=== PATIENT | female | born 1960 | race Caucasian/White ===

== ENCOUNTER 2019-10-28 09:32 | Outpatient (REF) | payer OTHER, SELFPAY ==
--- NOTE | 2019-10-28 08:30 | PAPFT_PTH ---
PATIENT: Sandra Shrestha LOC: [facility] U#:[id number] AGE/SX: 59/F ROOM: RE10/28/[address]: Hayley Gee : 1960 BED: DIS: 10/28/2019 SPEC #: [id number] RECD: 10/29/19 13:16 STATUS: GROVER REQ #: [id number] HARLAN: 10/28/19 08:[address]: Hayley Gee DEPT: [facility] Cytology RECD BY: Kayleigh Hensley ENTERED: 10/29/19 13:16 SP TYPE: PAPFT OTHR DR: Cris Fair V Tissues: 1 - CX/ENDOCX FOR PAP SMEARS Procedures: PAP THIN PREP/UVM Screening HPV DNA PROBE Comments: [id number]
== END 2019-10-28 09:52 ==
LOC: NCHCN 09:32
PROVIDERS: PCP Family Medicine; Visit Provider Nurse Practitioner Family
DX: Z12.4 Encounter for screening for malignant neoplasm of cervix (principal); Z01.419 Encounter for gynecological examination (general) (routine) without abnormal findings
CPT/HCPCS: 88142; 87624

== ENCOUNTER 2019-12-29 02:33 | Outpatient (CLI) | payer OTHER, SELFPAY ==
--- NOTE | 2019-12-29 11:18 | DI.MAMMO_ITS ---
EXAM: MAMMO SCREENING CLINICAL HISTORY: SCREENING, Z12.39 TECHNIQUE: Mammograms were interpreted according to the usual protocol including computer analysis w [employer] CAD system, tomosynthesis and C-view imaging. COMPARISON: 2016 and 2017 FINDINGS: The breasts are composed of mainly fatty density , Breast Density category A. No suspicious masses or suspicious microcalcifications are seen. No skin thickening or abnormal axillary lymph nodes are seen. There has been no significant change from prior exams. IMPRESSION: BI-RADS Cat 1 - Negative. Yearly screening mammography is recommended. Breast Density - Category A - Almost entirely fatty
== END 2019-12-29 02:53 ==
PROVIDERS: PCP Family Medicine; Visit Provider Nurse Practitioner Family
DX: Z12.31 Encounter for screening mammogram for malignant neoplasm of breast (principal)
CPT/HCPCS: 77063; 77067

== ENCOUNTER 2020-01-01 03:01 | Outpatient (CLI) | payer OTHER, SELFPAY ==
[2020-01-01 11:04] LABS: Calculated LDL 168 mg/dL (<100); Cholesterol 248 mg/dL (<200); Glucose 104 mg/dL (74-106); HDL Cholesterol 70 mg/dL (40-60); Triglyceride 52 mg/dL (<150)
== END 2020-01-01 03:21 ==
PROVIDERS: PCP Family Medicine; Visit Provider Nurse Practitioner Family
DX: Z00.00 Encounter for general adult medical examination without abnormal findings (principal); Z13.1 Encounter for screening for diabetes mellitus; Z13.220 Encounter for screening for lipoid disorders
CPT/HCPCS: 36415; 80061; 82947

== ENCOUNTER 2020-06-12 16:54 | Outpatient (REF) | payer OTHER, SELFPAY ==
[2020-06-12 19:53] LABS: HCT 40.8 % (36.0-46.0); HGB 13.5 g/dL (11.2-15.7); MCH 30.3 pg (27.0-33.0); MCHC 33.1 % (32.0-36.0); MCV 91.7 fL (80-95); MPV 10.7 fL (8.0-11.0); Platelet Count 407 10^3/uL (130-400); RBC 4.45 10^6/uL (3.93-5.22); RDW 12.8 % (11.7-14.6); RDW-SD 42.7 fL
[2020-06-12 20:00] LABS: Anion Gap 9.2 mmol/L (3-11); BUN 16 mg/dL (7-18); CO2 26.8 mmol/L (21.0-32.0); CREATININE 0.88 mg/dL (0.55-1.02); Chloride 104 mmol/L (98-107); Glucose 120 mg/dL (74-106); Potassium 4.5 mmol/L (3.5-5.1); Sodium 140 mmol/L (136-145)
== END 2020-06-12 17:14 ==
LOC: NCHCN 16:54
PROVIDERS: PCP Family Medicine; Visit Provider Nurse Practitioner Family
DX: R89.9 Unspecified abnormal finding in specimens from other organs, systems and tissues (principal)
CPT/HCPCS: 80048; 85027

== ENCOUNTER 2020-07-17 03:04 | Outpatient (CLI) | payer OTHER, SELFPAY ==
[2020-07-17 12:07] LABS: Abs Immature Grans 0.03 10^3/uL (0.0-0.06); Absolute Basophil Count 0.07 10^3/uL (0.0-0.2); Absolute Eosinophil Count 0.57 10^3/uL (0.0-0.7); Absolute Lymphocyte Count 2.22 10^3/uL (1.2-3.4); Absolute Monocyte Count 0.47 10^3/uL (0.1-0.8); Absolute Neutrophil Count 5.08 10^3/uL (1.2-6.7); Basophils % 0.8; Eosinophils % 6.8; HCT 41.4 % (36.0-46.0); HGB 13.6 g/dL (11.2-15.7); Immature Grans % 0.4; Lymphocytes % 26.3; MCH 30.4 pg (27.0-33.0); MCHC 32.9 % (32.0-36.0); MCV 92.6 fL (80-95); MPV 10.2 fL (8.0-11.0); Monocytes % 5.6; Neutrophils % 60.1; Nucleated RBC 0 %; Platelet Count 217 10^3/uL (130-400); RBC 4.47 10^6/uL (3.93-5.22); RDW 12.8 % (11.7-14.6); RDW-SD 43.5 fL; WBC 8.44 10^3/uL (4.4-10.8)
[2020-07-17 12:21] LABS: ALT 20 U/L (14-59); AST 13 U/L (15-37); Albumin 3.3 g/dL (3.4-5.0); Alkaline Phosphatase 121 U/L (46-116); Anion Gap 9.4 mmol/L (3-11); BUN 14 mg/dL (7-18); Bilirubin, Total 0.4 mg/dL (0.2-1.0); CO2 24.6 mmol/L (21.0-32.0); CREATININE 0.77 mg/dL (0.55-1.02); Calcium 9.1 mg/dL (8.5-10.1); Chloride 105 mmol/L (98-107); Glucose 133 mg/dL (74-106); Potassium 3.9 mmol/L (3.5-5.1); Sodium 139 mmol/L (136-145); Total Protein 7.3 g/dL (6.4-8.2)
== END 2020-07-17 03:24 ==
PROVIDERS: PCP Family Medicine; Visit Provider Internal Medicine Medical Oncology
DX: C53.9 Malignant neoplasm of cervix uteri, unspecified (principal)
CPT/HCPCS: 36415; 80053; 85025

== ENCOUNTER 2020-08-14 01:04 | Outpatient (RCR) | payer OTHER, SELFPAY ==
[2020-07-24] MEDS: Normal Saline Flush 10 ML SYR IVP (10:12)
[2020-07-24 10:22] LABS: Abs Immature Grans 0.02 10^3/uL (0.0-0.06); Absolute Basophil Count 0.07 10^3/uL (0.0-0.2); Absolute Eosinophil Count 0.41 10^3/uL (0.0-0.7); Absolute Monocyte Count 0.56 10^3/uL (0.1-0.8); Absolute Neutrophil Count 4.43 10^3/uL (1.2-6.7); Basophils % 0.9; Eosinophils % 5.3; HGB 12.8 g/dL (11.2-15.7); Immature Grans % 0.3; Lymphocytes % 28.6; MCH 29.9 pg (27.0-33.0); MCHC 32.8 % (32.0-36.0); MCV 91.1 fL (80-95); MPV 10.2 fL (8.0-11.0); Monocytes % 7.3; Neutrophils % 57.6; Nucleated RBC 0 %; Platelet Count 290 10^3/uL (130-400); RBC 4.28 10^6/uL (3.93-5.22); RDW 13.2 % (11.7-14.6); RDW-SD 44.1 fL; WBC 7.69 10^3/uL (4.4-10.8)
[2020-07-24 10:43] LABS: ALT 19 U/L (14-59); AST 15 U/L (15-37); Albumin 3.3 g/dL (3.4-5.0); Alkaline Phosphatase 120 U/L (46-116); Anion Gap 11.5 mmol/L (3-11); BUN 13 mg/dL (7-18); Bilirubin, Total 0.3 mg/dL (0.2-1.0); CO2 21.5 mmol/L (21.0-32.0); CREATININE 0.77 mg/dL (0.55-1.02); Calcium 8.9 mg/dL (8.5-10.1); Chloride 105 mmol/L (98-107); Glucose 115 mg/dL (74-106); Magnesium 2.1 mg/dL (1.8-2.4); Sodium 138 mmol/L (136-145); Total Protein 7.2 g/dL (6.4-8.2)
[2020-07-31] MEDS: Normal Saline Flush 10 ML SYR IVP (10:45)
[2020-07-31 10:58] LABS: Abs Immature Grans 0.06 10^3/uL (0.0-0.06); Absolute Basophil Count 0.04 10^3/uL (0.0-0.2); Absolute Eosinophil Count 0.46 10^3/uL (0.0-0.7); Absolute Lymphocyte Count 1.13 10^3/uL (1.2-3.4); Absolute Monocyte Count 0.68 10^3/uL (0.1-0.8); Basophils % 0.6; Eosinophils % 6.4; HCT 39.8 % (36.0-46.0); HGB 13.2 g/dL (11.2-15.7); Immature Grans % 0.8; Lymphocytes % 15.8; MCH 30.6 pg (27.0-33.0); MCHC 33.2 % (32.0-36.0); MCV 92.1 fL (80-95); MPV 10.1 fL (8.0-11.0); Monocytes % 9.5; Neutrophils % 66.9; Nucleated RBC 0 %; Platelet Count 266 10^3/uL (130-400); RBC 4.32 10^6/uL (3.93-5.22); RDW 12.9 % (11.7-14.6); RDW-SD 43.3 fL; WBC 7.17 10^3/uL (4.4-10.8)
[2020-07-31 11:16] LABS: ALT 25 U/L (14-59); AST 17 U/L (15-37); Albumin 3.4 g/dL (3.4-5.0); Alkaline Phosphatase 130 U/L (46-116); Anion Gap 7.6 mmol/L (3-11); BUN 26 mg/dL (7-18); Bilirubin, Total 0.6 mg/dL (0.2-1.0); CO2 28.4 mmol/L (21.0-32.0); CREATININE 1.08 mg/dL (0.55-1.02); Chloride 103 mmol/L (98-107); Estimated GFR 51.41 (mL/min/1.73m2); Glucose 125 mg/dL (74-106); Magnesium 1.9 mg/dL (1.8-2.4); Sodium 139 mmol/L (136-145); Total Protein 7.4 g/dL (6.4-8.2)
[2020-08-07 08:54] LABS: Abs Immature Grans 0.03 10^3/uL (0.0-0.06); Absolute Basophil Count 0.02 10^3/uL (0.0-0.2); Absolute Eosinophil Count 0.36 10^3/uL (0.0-0.7); Absolute Lymphocyte Count 0.72 10^3/uL (1.2-3.4); Absolute Monocyte Count 0.56 10^3/uL (0.1-0.8); Absolute Neutrophil Count 4.75 10^3/uL (1.2-6.7); Basophils % 0.3; Eosinophils % 5.6; HCT 35.7 % (36.0-46.0); HGB 11.8 g/dL (11.2-15.7); Immature Grans % 0.5; Lymphocytes % 11.2; MCH 30.6 pg (27.0-33.0); MCHC 33.1 % (32.0-36.0); MCV 92.7 fL (80-95); MPV 9.7 fL (8.0-11.0); Monocytes % 8.7; Neutrophils % 73.7; Nucleated RBC 0 %; Platelet Count 157 10^3/uL (130-400); RBC 3.85 10^6/uL (3.93-5.22); RDW-SD 43.7 fL; WBC 6.44 10^3/uL (4.4-10.8)
[2020-08-07] MEDS: Normal Saline Flush 10 ML SYR IVP (08:57)
[2020-08-07 09:11] LABS: ALT 18 U/L (14-59); AST 17 U/L (15-37); Alkaline Phosphatase 111 U/L (46-116); BUN 20 mg/dL (7-18); Bilirubin, Total 0.4 mg/dL (0.2-1.0); Calcium 8.5 mg/dL (8.5-10.1); Chloride 104 mmol/L (98-107); Estimated GFR 56.18 (mL/min/1.73m2); Glucose 121 mg/dL (74-106); Magnesium 1.7 mg/dL (1.8-2.4); Sodium 137 mmol/L (136-145); Total Protein 6.6 g/dL (6.4-8.2)
[2020-08-14 08:49] LABS: Abs Immature Grans 0.02 10^3/uL (0.0-0.06); Absolute Basophil Count 0.04 10^3/uL (0.0-0.2); Absolute Eosinophil Count 0.34 10^3/uL (0.0-0.7); Absolute Lymphocyte Count 0.48 10^3/uL (1.2-3.4); Absolute Monocyte Count 0.55 10^3/uL (0.1-0.8); Absolute Neutrophil Count 3.52 10^3/uL (1.2-6.7); Basophils % 0.8; Eosinophils % 6.9; HCT 33.1 % (36.0-46.0); HGB 11.2 g/dL (11.2-15.7); Immature Grans % 0.4; Lymphocytes % 9.7; MCH 30.9 pg (27.0-33.0); MCHC 33.8 % (32.0-36.0); MCV 91.4 fL (80-95); MPV 9.3 fL (8.0-11.0); Monocytes % 11.1; Neutrophils % 71.1; Nucleated RBC 0 %; Platelet Count 181 10^3/uL (130-400); RBC 3.62 10^6/uL (3.93-5.22); RDW-SD 42.5 fL; WBC 4.95 10^3/uL (4.4-10.8)
[2020-08-14] MEDS: Normal Saline Flush 10 ML SYR IVP (09:07)
[2020-08-14 09:10] LABS: ALT 22 U/L (14-59); AST 14 U/L (15-37); Albumin 3.2 g/dL (3.4-5.0); Alkaline Phosphatase 110 U/L (46-116); Anion Gap 9.1 mmol/L (3-11); BUN 18 mg/dL (7-18); Bilirubin, Total 0.4 mg/dL (0.2-1.0); CO2 23.9 mmol/L (21.0-32.0); CREATININE 1.01 mg/dL (0.55-1.02); Calcium 8.5 mg/dL (8.5-10.1); Chloride 106 mmol/L (98-107); Estimated GFR 55.54 (mL/min/1.73m2); Glucose 115 mg/dL (74-106); Magnesium 1.6 mg/dL (1.8-2.4); Potassium 4.2 mmol/L (3.5-5.1); Sodium 139 mmol/L (136-145); Total Protein 6.8 g/dL (6.4-8.2)
== END 2020-08-19 23:59 | disposition home or self-care (01) ==
LOC: INF 01:04
PROVIDERS: PCP Family Medicine; Visit Provider Internal Medicine Medical Oncology
DX: C53.9 Malignant neoplasm of cervix uteri, unspecified (principal)
CPT/HCPCS: 36415; 80053; 83735; 85025

== ENCOUNTER 2020-09-18 12:30 | Outpatient (RCR) | payer OTHER, SELFPAY ==
[2020-08-21] MEDS: Normal Saline Flush 10 ML SYR IVP (08:59)
[2020-08-21 09:04] LABS: Abs Immature Grans 0.01 10^3/uL (0.0-0.06); Absolute Basophil Count 0.02 10^3/uL (0.0-0.2); Absolute Eosinophil Count 0.07 10^3/uL (0.0-0.7); Absolute Neutrophil Count 2.39 10^3/uL (1.2-6.7); Basophils % 0.6; Eosinophils % 2.2; HCT 30.6 % (36.0-46.0); HGB 10.4 g/dL (11.2-15.7); Immature Grans % 0.3; Lymphocytes % 9.4; MCH 31.3 pg (27.0-33.0); MCV 92.2 fL (80-95); MPV 9.4 fL (8.0-11.0); Monocytes % 12.5; Nucleated RBC 0 %; Platelet Count 129 10^3/uL (130-400); RBC 3.32 10^6/uL (3.93-5.22); RDW-SD 41.9 fL; WBC 3.19 10^3/uL (4.4-10.8)
[2020-08-21 09:27] LABS: ALT 25 U/L (14-59); AST 15 U/L (15-37); Albumin 3.1 g/dL (3.4-5.0); Alkaline Phosphatase 110 U/L (46-116); Anion Gap 9.1 mmol/L (3-11); BUN 23 mg/dL (7-18); Bilirubin, Total 0.5 mg/dL (0.2-1.0); CO2 24.9 mmol/L (21.0-32.0); CREATININE 0.99 mg/dL (0.55-1.02); Calcium 8.4 mg/dL (8.5-10.1); Chloride 106 mmol/L (98-107); Estimated GFR 56.84 (mL/min/1.73m2); Glucose 110 mg/dL (74-106); Magnesium 1.5 mg/dL (1.8-2.4); Potassium 3.8 mmol/L (3.5-5.1); Sodium 140 mmol/L (136-145); Total Protein 6.7 g/dL (6.4-8.2)
[2020-08-28] MEDS: Normal Saline Flush 10 ML SYR IVP (08:40)
[2020-08-28 09:10] LABS: Abs Immature Grans 0.01 10^3/uL (0.0-0.06); Absolute Basophil Count 0.01 10^3/uL (0.0-0.2); Absolute Eosinophil Count 0.04 10^3/uL (0.0-0.7); Absolute Lymphocyte Count 0.21 10^3/uL (1.2-3.4); Absolute Monocyte Count 0.21 10^3/uL (0.1-0.8); Absolute Neutrophil Count 1.32 10^3/uL (1.2-6.7); Basophils % 0.6; Eosinophils % 2.2; HCT 26.6 % (36.0-46.0); HGB 9.1 g/dL (11.2-15.7); Immature Grans % 0.6; Lymphocytes % 11.7; MCH 30.5 pg (27.0-33.0); MCHC 34.2 % (32.0-36.0); MCV 89.3 fL (80-95); MPV 10.1 fL (8.0-11.0); Monocytes % 11.7; Neutrophils % 73.2; Nucleated RBC 0 %; RBC 2.98 10^6/uL (3.93-5.22); RDW 12.8 % (11.7-14.6); RDW-SD 40.6 fL
[2020-08-28 09:39] LABS: ALT 19 U/L (14-59); AST 13 U/L (15-37); Albumin 3.2 g/dL (3.4-5.0); Alkaline Phosphatase 97 U/L (46-116); Anion Gap 8.6 mmol/L (3-11); BUN 22 mg/dL (7-18); Bilirubin, Total 0.5 mg/dL (0.2-1.0); CO2 28.4 mmol/L (21.0-32.0); CREATININE 1.19 mg/dL (0.55-1.02); Calcium 7.9 mg/dL (8.5-10.1); Chloride 104 mmol/L (98-107); Estimated GFR 45.96 (mL/min/1.73m2); Glucose 107 mg/dL (74-106); Potassium 3.4 mmol/L (3.5-5.1); Sodium 141 mmol/L (136-145); Total Protein 6.7 g/dL (6.4-8.2)
[2020-08-28 09:44] LABS: Diff Comment Agrees w/ Instrument
[2020-08-28 09:52] LABS: Platelet Count 92 10^3/uL (130-400)
[2020-08-28 09:53] LABS: RBC Morphology Normal
[2020-08-30 11:58] LABS: Magnesium 1.1 mg/dL (1.8-2.4)
[2020-09-04 12:54] LABS: Abs Immature Grans 0.01 10^3/uL (0.0-0.06); Absolute Eosinophil Count 0.03 10^3/uL (0.0-0.7); Absolute Lymphocyte Count 0.14 10^3/uL (1.2-3.4); Absolute Monocyte Count 0.26 10^3/uL (0.1-0.8); Absolute Neutrophil Count 1.16 10^3/uL (1.2-6.7); Eosinophils % 1.9; HCT 25.3 % (36.0-46.0); HGB 8.8 g/dL (11.2-15.7); Immature Grans % 0.6; Lymphocytes % 8.8; MCHC 34.8 % (32.0-36.0); MCV 89.1 fL (80-95); MPV 10.3 fL (8.0-11.0); Monocytes % 16.3; Neutrophils % 72.4; Nucleated RBC 0 %; RBC 2.84 10^6/uL (3.93-5.22); RDW 12.6 % (11.7-14.6); RDW-SD 39.6 fL
[2020-09-04 13:06] LABS: ALT 21 U/L (14-59); AST 14 U/L (15-37); Albumin 3.2 g/dL (3.4-5.0); Alkaline Phosphatase 105 U/L (46-116); Anion Gap 10.5 mmol/L (3-11); BUN 22 mg/dL (7-18); Bilirubin, Total 0.4 mg/dL (0.2-1.0); CO2 26.5 mmol/L (21.0-32.0); CREATININE 1.12 mg/dL (0.55-1.02); Chloride 105 mmol/L (98-107); Estimated GFR 49.29 (mL/min/1.73m2); Glucose 115 mg/dL (74-106); Magnesium 0.9 mg/dL (1.8-2.4); Potassium 3.5 mmol/L (3.5-5.1); Sodium 142 mmol/L (136-145); Total Protein 6.9 g/dL (6.4-8.2)
[2020-09-04 13:17] LABS: Diff Comment Diff Reviewed; Platelet Count 104 10^3/uL (130-400); RBC Morphology Normal
[2020-09-07 09:29] LABS: Abs Immature Grans 0.01 10^3/uL (0.0-0.06); Absolute Basophil Count 0.01 10^3/uL (0.0-0.2); Absolute Eosinophil Count 0.02 10^3/uL (0.0-0.7); Absolute Monocyte Count 0.25 10^3/uL (0.1-0.8); Absolute Neutrophil Count 0.79 10^3/uL (1.2-6.7); Basophils % 0.8; Eosinophils % 1.6; HCT 23.7 % (36.0-46.0); HGB 8.2 g/dL (11.2-15.7); Immature Grans % 0.8; Lymphocytes % 15.6; MCH 30.7 pg (27.0-33.0); MCHC 34.6 % (32.0-36.0); MCV 88.8 fL (80-95); MPV 10.4 fL (8.0-11.0); Monocytes % 19.5; Neutrophils % 61.7; Nucleated RBC 0 %; Platelet Count 142 10^3/uL (130-400); RBC 2.67 10^6/uL (3.93-5.22); RDW 12.7 % (11.7-14.6); RDW-SD 39.9 fL
[2020-09-07 09:42] LABS: ALT 24 U/L (14-59); AST 14 U/L (15-37); Albumin 3.2 g/dL (3.4-5.0); Alkaline Phosphatase 108 U/L (46-116); BUN 26 mg/dL (7-18); Bilirubin, Total 0.4 mg/dL (0.2-1.0); CREATININE 1.24 mg/dL (0.55-1.02); Calcium 8.3 mg/dL (8.5-10.1); Chloride 106 mmol/L (98-107); Estimated GFR 43.83 (mL/min/1.73m2); Glucose 120 mg/dL (74-106); Magnesium 1.4 mg/dL (1.8-2.4); Potassium 3.8 mmol/L (3.5-5.1); Sodium 144 mmol/L (136-145); Total Protein 6.8 g/dL (6.4-8.2)
[2020-09-07 09:50] LABS: WBC 1.28 10^3/uL (4.4-10.8)
[2020-09-07 09:51] LABS: Diff Comment Diff Reviewed; Polychromasia Present
[2020-09-11 12:08] LABS: Abs Immature Grans 0.04 10^3/uL (0.0-0.06); Absolute Basophil Count 0.01 10^3/uL (0.0-0.2); Absolute Eosinophil Count 0.03 10^3/uL (0.0-0.7); Absolute Lymphocyte Count 0.38 10^3/uL (1.2-3.4); Absolute Monocyte Count 0.51 10^3/uL (0.1-0.8); Absolute Neutrophil Count 1.14 10^3/uL (1.2-6.7); Basophils % 0.5; Eosinophils % 1.4; HCT 25.8 % (36.0-46.0); HGB 8.7 g/dL (11.2-15.7); Immature Grans % 1.9; MCH 31.1 pg (27.0-33.0); MCHC 33.7 % (32.0-36.0); MCV 92.1 fL (80-95); MPV 9.6 fL (8.0-11.0); Monocytes % 24.2; Nucleated RBC 0 %; Platelet Count 264 10^3/uL (130-400); RDW 13.5 % (11.7-14.6); RDW-SD 40.4 fL; WBC 2.11 10^3/uL (4.4-10.8)
[2020-09-11 12:39] LABS: ALT 22 U/L (14-59); AST 14 U/L (15-37); Albumin 3.4 g/dL (3.4-5.0); Alkaline Phosphatase 112 U/L (46-116); Anion Gap 10.6 mmol/L (3-11); BUN 20 mg/dL (7-18); Bilirubin, Total 0.3 mg/dL (0.2-1.0); CO2 23.4 mmol/L (21.0-32.0); CREATININE 1.22 mg/dL (0.55-1.02); Calcium 9.1 mg/dL (8.5-10.1); Chloride 106 mmol/L (98-107); Estimated GFR 44.66 (mL/min/1.73m2); Glucose 122 mg/dL (74-106); Magnesium 1.5 mg/dL (1.8-2.4); Potassium 4.4 mmol/L (3.5-5.1); Sodium 140 mmol/L (136-145); Total Protein 7.4 g/dL (6.4-8.2)
[2020-09-18 13:09] LABS: Abs Immature Grans 0.12 10^3/uL (0.0-0.06); Absolute Basophil Count 0.04 10^3/uL (0.0-0.2); Absolute Eosinophil Count 0.05 10^3/uL (0.0-0.7); Absolute Lymphocyte Count 0.64 10^3/uL (1.2-3.4); Absolute Monocyte Count 0.78 10^3/uL (0.1-0.8); Absolute Neutrophil Count 3.17 10^3/uL (1.2-6.7); Basophils % 0.8; HCT 26.2 % (36.0-46.0); HGB 8.9 g/dL (11.2-15.7); Immature Grans % 2.5; Lymphocytes % 13.3; MCH 31.6 pg (27.0-33.0); MCV 92.9 fL (80-95); MPV 9.4 fL (8.0-11.0); Monocytes % 16.3; Neutrophils % 66.1; Nucleated RBC 0 %; Platelet Count 267 10^3/uL (130-400); RBC 2.82 10^6/uL (3.93-5.22); RDW 15.9 % (11.7-14.6); RDW-SD 51.2 fL
[2020-09-18 13:24] LABS: ALT 18 U/L (14-59); AST 14 U/L (15-37); Albumin 3.5 g/dL (3.4-5.0); Alkaline Phosphatase 129 U/L (46-116); Anion Gap 8.6 mmol/L (3-11); BUN 21 mg/dL (7-18); Bilirubin, Total 0.3 mg/dL (0.2-1.0); CO2 23.4 mmol/L (21.0-32.0); CREATININE 1.17 mg/dL (0.55-1.02); Chloride 106 mmol/L (98-107); Estimated GFR 46.87 (mL/min/1.73m2); Glucose 111 mg/dL (74-106); Magnesium 1.7 mg/dL (1.8-2.4); Potassium 4.7 mmol/L (3.5-5.1); Sodium 138 mmol/L (136-145); Total Protein 7.3 g/dL (6.4-8.2)
== END 2020-09-18 23:59 | disposition home or self-care (01) ==
LOC: INF 12:30
PROVIDERS: PCP Family Medicine; Visit Provider Internal Medicine Medical Oncology
DX: C53.9 Malignant neoplasm of cervix uteri, unspecified (principal)
CPT/HCPCS: 36415; 80053; 83735; 85025

== ENCOUNTER 2020-10-02 01:37 | Outpatient (RCR) | payer OTHER, SELFPAY ==
[2020-10-02 13:50] LABS: ALT 21 U/L (14-59); AST 15 U/L (15-37); Albumin 3.5 g/dL (3.4-5.0); Alkaline Phosphatase 117 U/L (46-116); Anion Gap 7.7 mmol/L (3-11); BUN 28 mg/dL (7-18); Bilirubin, Total 0.4 mg/dL (0.2-1.0); CO2 24.3 mmol/L (21.0-32.0); CREATININE 1.28 mg/dL (0.55-1.02); Chloride 103 mmol/L (98-107); Estimated GFR 42.25 (mL/min/1.73m2); Glucose 118 mg/dL (74-106); Magnesium 1.6 mg/dL (1.8-2.4); Potassium 4.2 mmol/L (3.5-5.1); Sodium 135 mmol/L (136-145); Total Protein 7.7 g/dL (6.4-8.2)
[2020-10-02 14:00] LABS: Abs Immature Grans 0.13 10^3/uL (0.0-0.06); Absolute Basophil Count 0.06 10^3/uL (0.0-0.2); Absolute Eosinophil Count 0.12 10^3/uL (0.0-0.7); Absolute Lymphocyte Count 0.79 10^3/uL (1.2-3.4); Absolute Monocyte Count 0.64 10^3/uL (0.1-0.8); Absolute Neutrophil Count 5.41 10^3/uL (1.2-6.7); Basophils % 0.8; Eosinophils % 1.7; HCT 29.2 % (36.0-46.0); HGB 9.8 g/dL (11.2-15.7); Immature Grans % 1.8; MCH 32.5 pg (27.0-33.0); MCHC 33.6 % (32.0-36.0); MCV 96.7 fL (80-95); MPV 10.3 fL (8.0-11.0); Neutrophils % 75.7; Nucleated RBC 0 %; Platelet Count 272 10^3/uL (130-400); RBC 3.02 10^6/uL (3.93-5.22); RDW-SD 61.9 fL; WBC 7.15 10^3/uL (4.4-10.8)
== END 2020-10-19 23:59 | disposition home or self-care (01) ==
LOC: INF 01:37
PROVIDERS: PCP Family Medicine; Visit Provider Internal Medicine Medical Oncology
DX: C53.9 Malignant neoplasm of cervix uteri, unspecified (principal)
CPT/HCPCS: 36415; 80053; 83735; 85025

== ENCOUNTER 2021-01-18 11:26 | Outpatient (REF) | payer OTHER, SELFPAY ==
[2021-01-18 15:12] LABS: HCT 32.9 % (36.0-46.0); MCH 32.4 pg (27.0-33.0); MCHC 33.4 % (32.0-36.0); MCV 97.1 fL (80-95); MPV 10.1 fL (8.0-11.0); Platelet Count 242 10^3/uL (130-400); RBC 3.39 10^6/uL (3.93-5.22); RDW-SD 42.5 fL
[2021-01-18 15:48] LABS: Anion Gap 10.4 mmol/L (3-11); BUN 34 mg/dL (7-18); CO2 23.6 mmol/L (21.0-32.0); CREATININE 1.2 mg/dL (0.55-1.02); Calcium 9.1 mg/dL (8.5-10.1); Chloride 105 mmol/L (98-107); Estimated GFR 45.52 (mL/min/1.73m2); Glucose 123 mg/dL (74-106); Magnesium 1.9 mg/dL (1.8-2.4); Potassium 4.7 mmol/L (3.5-5.1); Sodium 139 mmol/L (136-145)
== END 2021-01-18 11:27 | disposition home or self-care (01) ==
LOC: NCHCN 11:26
PROVIDERS: PCP Family Medicine; Visit Provider Nurse Practitioner Family
DX: R89.9 Unspecified abnormal finding in specimens from other organs, systems and tissues (principal); Z85.41 Personal history of malignant neoplasm of cervix uteri
CPT/HCPCS: 80048; 85027; 83735

== ENCOUNTER 2021-05-11 20:09 | Outpatient (REF) | payer OTHER, SELFPAY ==
[2021-05-11 19:18] LABS: HCT 32.6 % (36.0-46.0); HGB 10.7 g/dL (11.2-15.7); MCH 33.3 pg (27.0-33.0); MCHC 32.8 % (32.0-36.0); MCV 101.6 fL (80-95); MPV 9.7 fL (8.0-11.0); Platelet Count 246 10^3/uL (130-400); RBC 3.21 10^6/uL (3.93-5.22); RDW 12.3 % (11.7-14.6); RDW-SD 46.1 fL; WBC 6.07 10^3/uL (4.4-10.8)
[2021-05-11 19:27] LABS: Anion Gap 7.9 mmol/L (3-11); BUN 24 mg/dL (7-18); CO2 25.1 mmol/L (21.0-32.0); CREATININE 1.2 mg/dL (0.55-1.02); Calcium 8.7 mg/dL (8.5-10.1); Chloride 106 mmol/L (98-107); Estimated GFR 45.52 (mL/min/1.73m2); Glucose 120 mg/dL (74-106); Potassium 3.6 mmol/L (3.5-5.1); Sodium 139 mmol/L (136-145)
== END 2021-05-11 20:10 | disposition home or self-care (01) ==
LOC: NCHCN 20:09
PROVIDERS: PCP Family Medicine; Visit Provider Nurse Practitioner Family
DX: R89.9 Unspecified abnormal finding in specimens from other organs, systems and tissues (principal)
CPT/HCPCS: 80048; 85027

== ENCOUNTER 2021-06-20 02:31 | Outpatient (CLI) | payer OTHER, SELFPAY ==
[2021-06-20 10:53] LABS: Source Nasal/Nares
[2021-06-20 13:24] LABS: COVID-19 PCR Negative (Negative)
== END 2021-06-20 02:32 | disposition home or self-care (01) ==
LOC: LBO 02:31
PROVIDERS: PCP Family Medicine; Visit Provider Surgery
DX: Z20.822 Contact with and (suspected) exposure to COVID-19 (principal); Z01.818 Encounter for other preprocedural examination
CPT/HCPCS: 87635

== ENCOUNTER 2021-06-22 06:13 | Day surgery (SDC) | payer OTHER, SELFPAY ==
[2021-06-22 06:26] VITALS: BP 135/93; PULSE 94; RESP 16; TEMP 36.1; O2SAT 96
[2021-06-22] MEDS: Lactated Ringers 1,000 ML 80 ML IV (06:54)
--- NOTE | 2021-06-22 07:05 | W.ANESPRE ---
General Info Date of Service Date Performed: 06/22/21 Height: 5 ft 7 in Weight: 86.1 kg Body Mass Index (BMI): 29.7 Surgical Procedure: Operation Date: 06/22/21 07:35 Proposed Procedures Side Surgeon seullen Kauffman, Meds Allergies and Home Medications Allergies Allergy/AdvReac Type Severity Reaction Status Date / Time bacitracin Allergy Severe causes Unverified 06/22/21 06:33 skin infection latex Allergy Severe rash Unverified 06/22/21 06:33 neomycin Allergy Severe skin Unverified 06/22/21 06:33 infection polymyxin B Allergy Severe causes Unverified 06/22/21 06:33 skin infection Home Medication Medication Instructions Recorded acetaminophen 325 mg capsule 325 mg PO Q6H PRN cap 02/02/21 calcium carbonate 500 mg calcium 500 mg PO DAILY 02/02/21 (1,250 mg) chewable tablet ibuprofen 200 mg capsule 600 mg PO BID PRN cap 02/02/21 bisacodyl 5 mg tablet,delayed 5 mg PO ONCE #4 tab 06/11/21 release polyethylene glycol 3350 17 238 g PO ONCE #238 g 06/11/21 gram/dose oral powder Current Visit Medications: Current Medications Generic Name Dose Route Start Last Admin Trade Name Freq PRN Reason Stop Dose Admin Hyoscyamine Sulfate 0.125 mg 06/21/21 21:47 Hyoscyamine 0.125 Mg Sl/Oral/Chew SL DIRECTED PRN Ringer's Solution 1,000 mls @ 80 mls/hr 06/22/21 06:00 06/22/21 06:54 IV 07/21/21 23:59 80 mls/hr INFUSION ZAIN Administration IV Miscellaneous Supplies 1 each 06/22/21 06:00 Iv Access IV 07/21/21 23:59 DIRECTED ZAIN Ondansetron HCl 4 mg 06/21/21 21:47 Ondansetron 4 Mg/2 Ml Vial IVP Q4H PRN PRN Nausea / Vomiting Sodium Chloride 0 ml 06/22/21 06:00 Normal Saline Flush 10 Ml Syr IV 07/21/21 23:59 PRN PRN PFSH Active Problems Active Problems: Problem Status Onset Code Arthritis M19.90 Actinic keratosis L57.0 COPD (chronic obstructive pulmonary disease) J44.9 Dermatitis L30.9 Abnormal laboratory test result R89.9 Abdominal symptoms R19.8 Screening for colon cancer Z12.11 Medical History Medical History BCC (basal cell carcinoma of skin) Cervical cancer History of tobacco use HPV (human papilloma virus) infection SCC (squamous cell carcinoma) Surgical History Surgical History H/O: hysterectomy Radical hysterectomy, Bilateral salpingo-oophorectomy, pelvic lymphadenectomy Tobacco Smoking/Tobacco Use Status: Former Tobacco Use Alcohol Alcohol Intake: current Alcohol intake frequency: holidays/special occasions only Alcohol type: hard liquor Substance Use Substance use: Occasionally Substance use type: marijuana Vital Signs and Lab Results Vital Signs Most Recent Vital Signs in EMR: Most Recent Vital Signs Temp Pulse Resp BP Pulse Ox 36.1 C L 94 H 16 135/93 H 96 06/22/21 06:26 06/22/21 06:26 06/22/21 06:26 06/22/21 06:26 06/22/21 06:26 Lab Results Blood Type / Crossmatch: No Data to Display Complete Blood Count: No Data to Display Complete Metabolic Panel: No Data to Display Liver Function Panel: No Data to Display Coagulation Panel: No Data to Display Cardiac Panel: No Data to Display Arterial Blood Gas: No Data to Display Venous Blood Gas: No Data to Display Pancreas Panel: No Data to Display Thyroid Panel: No Data to Display Infectious Disease: Coronavirus (COVID-19)(PCR) Negative (Negative) 06/20/21 08:40 06/20/21 Coronavirus 2019 Source Nasal/Nares 06/20/21 08:40 06/20/21 Blood Cultures: No Data to Display Toxicology Panel: No Data to Display Anesthesia Assessment and Plan Anesthesia History Personal History: No History of Anesthesia Complications Family History: No Family History of Anesthesia Complications Exercise Tolerance Exercise Tolerance: Metabolic Equivalents>4 Pertinent Negatives Pertinent Negatives: No Symptoms of GERD and No Major Cardiovascular Symptoms or Complaints Cardiac & Pulmonary Exam Cardiac Exam: Normal S1/S2 Heart Sounds Pulmonary Exam: Clear Bilateral Breath Sounds Airway Exam Known Difficult Airway: No Mallampati Class: 2 Mouth Opening: Normal (> 3cm) Thyromental Distance: Greater than 3 cm Neck Range of Motion: Full ROM Neck Circumference: Normal Teeth Condition: Loose or Chipped and Advised tooth loss possible given current condition (indicate tooth) ASA Classification ASA Score: ASA 2 Emergency Case?: No NPO Status NPO Status: NPO Clears >2 hours, Solids >8 hours Anesthesia Plan Resuscitation Status: Full Code Anesthesia Technique: General Anesthesia Airway Planned: Natural Airway Monitors Used: Standard Monitors
[2021-06-22 07:08] VITALS: BMI 29.7
--- NOTE | 2021-06-22 09:30 | BOWEL_PTH ---
PATIENT: Sandra Shrestha LOC: [facility] U#:[id number] AGE/SX: 60/F ROOM: RE06/22/[address]: Charlene Kauffman : 1960 BED: DIS: 06/22/2021 SPEC #: [id number] RECD: 06/22/21 10:44 STATUS: GROVER REQ #: [id number] HARLAN: 06/22/21 09:[address]: Charlene Kauffman DEPT: Surgical Specimen RECD BY: Irena Lagos ENTERED: 06/22/21 10:48 SP TYPE: Bowel OTHR DR: Cris Fair V Tissues: 1 - BIOPSY BOWEL 2 - BIOPSY BOWEL 3 - BIOPSY BOWEL 4 - BIOPSY BOWEL 5 - BIOPSY BOWEL Procedures: GROSS AND MICRO LEVEL 4 Comments: [id number]
[2021-06-22 10:00] VITALS: BP 114/83; PULSE 76; RESP 18; TEMP 36.4; O2SAT 94
--- NOTE | 2021-06-22 10:03 | ROE_ITS ---
Date of service: 06/22/21 Time of Service: 10:03 Operative Note Operative Note DATE OF PROCEDURE: 06/22/21 PRE-OP DIAGNOSIS: diarrhea POST-OP DIAGNOSIS: other (diverticula. polyp at 25cm. I/E hemorrhoids) PROCEDURE: CE w/ hot snare polypectomy and clip. and bx SURGEON: Charlene Kauffman ANESTHESIA TYPE: General:No Airway Refer to Anesthesia Record ESTIMATED BLOOD LOSS: 3 PATHOLOGY: other COMPLICATIONS: None Patient was transported to: same day Patient's condition: stable Procedure Description: After informed consent was obtained the patient was taken to the procedure room and placed in a left decubitous position. Monitors were applied and a time out was done. The patients name, date of , procedure, allergies to medications and metal in their body was reviewed. Prior to beginning procedure a pelvic exam was done with the patient's consent. She does have significant vaginal atrophy. She does not seem to have a cystocele or rec tocele. Her rectal tone was poor. Anesthesia was than administered per the department of anesthesia. Previous lubricated laparoscope inserted in the rectum and insufflation of. From the rectum to about 30 cm the mucosa is pale. It does appear to be edematous. There is no signs of any acute infectious process. Biopsy is taken in the rectum. She does have a large polyp at 25 cm this was removed with a combination of a hot polypectomy snare and a hot biting forcep and multiple bites. A clip was then applied. She does have a few small scattered diarrhea nuclear in the sigmoid colon. They are confined to the sigmoid. There is no signs of active bleeding or infection. She does have a hernia from the previous midline laparotomy. Scope does become involved intertwined in the hernia but we are able to manually reduce this and proceed to the cecum. The scope was then withdrawn. Biopsies are taken cecum, 80 cm, 40 cm and. All specimen is retrieved and no bleeding is noted. The scope was then withdrawn. Patient tolerated procedure well without complication and transferred to same-day surgery in stable condition. The scope was then advanced to the cecum w/out difficulty. The TI and appendiceal orifice were identified. The prep was good. The scope was then slowly retracted over 12 minutes back into the rectum. The scope was removed and the patient was woken up and taken back to Same day surgery in stable condition. The patient tolerated the procedure well and there were no immediate complications. Follow up: The patient should follow up in 5-7 years, path pd, unless they develop changes in bowel habits or other new gastrointestinal complaints.
--- NOTE | 2021-06-22 10:13 | PDOC.DSDIS_ITS ---
Discharge Plan Disposition Patient Disposition: HOME Condition: Good Discharge Details Reason For Visit: colon scope Attending Provider: Charlene Kauffman Primary Care Provider: Cris Fair V Home Meds and New Rx's Prescriptions: Continued calcium carbonate 500 mg calcium (1,250 mg) tablet,chewable 500 mg PO DAILY RF: 0 ibuprofen 200 mg capsule 600 mg PO BID PRNRF: 0 acetaminophen [Tylenol] 325 mg capsule 325 mg PO Q6H PRNRF: 0 Discontinued polyethylene glycol 3350 17 gram/dose powder 238 g PO ONCE Qty: 238 RF: 0 bisacodyl [Dulcolax (bisacodyl)] 5 mg tablet,delayed release (DR/EC) 5 mg PO ONCE Qty: 4 RF: 0 Discharge Instructions Additional Instructions: DSU Colonoscopy Post- Op Instructions Instructions for Everyone who is given Anesthesia: For your safety, please do the following for the next twenty-four (24) hours: *Do Not operate a motor vehicle (car, truck, motorcycle, etc.) *Do Not drink alcoholic beverages or use any recreational drugs for the first 24 hours or while taking pain medications. The medications in your body may have a reaction that can be dangerous. *Do Not make any important decisions or sign any important papers. Findings:diverticula polyps atrophy Follow up: 2 wks 1. No lifting over 20 pounds or strenuous activity for the first 24 hours after your procedure. After 24 hours there are no restrictions on your activity but you may feel fatigued for a few days. 2. After you arrive home you may have a light meal and return to your normal diet as you can tolerate it without feeling sick to your stomach. 3. You may have a bloated, gaseous feeling in your belly (abdomen) after a colonoscopy. Passing gas and belching will help. Walking or lying down on your left side with your knees flexed may relieve the discomfort. Call the office at [phone] (Office) or [phone] (Hospital) right away if you notice any of the following: a.Vomiting of blood or ?coffee ground stools?. b.Rectal bleeding 1Tbsp, blood clots or continuous bleeding. c.Severe belly (abdominal) pain. d.A hard distended belly (abdomen) and an inability to pass gas. 4. Please don?t expect to have a normal BM (bowel movement) for 2-3 days after your procedure. 5. If there are questions regarding the findings of your procedure, please contact your doctor 6. If you are unable to contact your doctor with a problem, contact the hospital at [phone]. 7. Continue all your regular medications unless directed otherwise. I understand the above instructions and have no questions. Signature of Patient or Adult Escort Name of Responsible Adult Escort Signature of Nurse Date/Time Activity:: see above Diet:: see above Discharge Orders Discharge Orders: Discharge Order (Routine); Ordered 06/21/21 Ordered By: Charlene Kauffman DS: Diagnosis Discharge Diagnosis (1) Diverticula of colon: Status: Acute (2) Colon polyp: Status: Acute (3) Vaginal atrophy: Status: Acute (4) Diarrhea: Status: Acute (5) Fecal incontinence: Status: Acute (6) History of tobacco use: Status: Inactive (7) Cervical cancer: Status: Inactive
--- NOTE | 2021-06-22 10:18 | W.ANESPOSTOP ---
Postoperative Evaluation Date, Time and Location Date Performed: 06/22/21 Time Performed: 10:18 Patient Location: Day Surgery Unit Vital Signs Most Recent Imported Vital Signs: Most Recent Vital Signs Temp Pulse Resp BP Pulse Ox 36.4 C L 76 18 114/83 94 06/22/21 10:00 06/22/21 10:00 06/22/21 10:00 06/22/21 10:00 06/22/21 10:00 Pain Score Most Recent Pain Score: Most Recent Pain Score Pain Level 4 06/22/21 10:00 Assessment Mental Status: Arousable with meaningful communication Airway and Respiratory Function: Patent airway with normal (patient baseline) respiratory exam Cardiovascular Function: Hemodynamically Stable Hydration Status: Adequately Hydrated Nausea & Vomiting: No Nausea or Vomiting Pain: Pt. Denies Any Pain Peripheral Nerve Block: Patient did not receive a nerve block
[2021-06-22 10:30] VITALS: BP 123/69; PULSE 82; RESP 16; TEMP 36.3; O2SAT 95
== END 2021-06-22 10:52 | disposition home or self-care (01) ==
PROVIDERS: PCP Family Medicine; Visit Provider Surgery
PROC: 0DJD8ZZ Inspection of Lower Intestinal Tract, Via Natural or Artificial Opening Endoscopic (ICD-10-PCS; CPT 45378; principal; 2021-06-22 07:30)
DX: R19.7 Diarrhea, unspecified (principal); K51.40 Inflammatory polyps of colon without complications; K57.30 Diverticulosis of large intestine without perforation or abscess without bleeding; K64.8 Other hemorrhoids
CPT/HCPCS: 45380; 45385; 88305; J2001; J2704

== ENCOUNTER 2021-07-05 14:14 | Outpatient (REF) | payer OTHER, SELFPAY ==
[2021-07-05 11:39] LABS: Abs Immature Grans 0.02 10^3/uL (0.0-0.06); Absolute Basophil Count 0.03 10^3/uL (0.0-0.2); Absolute Eosinophil Count 0.23 10^3/uL (0.0-0.7); Absolute Lymphocyte Count 1.18 10^3/uL (1.2-3.4); Absolute Monocyte Count 0.36 10^3/uL (0.1-0.8); Absolute Neutrophil Count 3.61 10^3/uL (1.2-6.7); Basophils % 0.6; Eosinophils % 4.2; HCT 32.9 % (36.0-46.0); HGB 10.7 g/dL (11.2-15.7); Immature Grans % 0.4; Lymphocytes % 21.7; MCH 31.7 pg (27.0-33.0); MCHC 32.5 % (32.0-36.0); MCV 97.3 fL (80-95); Monocytes % 6.6; Neutrophils % 66.5; Nucleated RBC 0 %; Platelet Count 255 10^3/uL (130-400); RBC 3.38 10^6/uL (3.93-5.22); RDW 12.7 % (11.7-14.6); RDW-SD 45.1 fL; WBC 5.43 10^3/uL (4.4-10.8)
[2021-07-05 11:48] LABS: Iron 72 ug/dL (50-170); Total Iron Binding Capacity 301 ug/dL (250-450); Transferrin Sat 24 % (15-50)
[2021-07-05 12:06] LABS: Ferritin 47 ng/mL (8-252)
== END 2021-07-05 14:15 | disposition home or self-care (01) ==
LOC: LBN 14:14
PROVIDERS: PCP Family Medicine; Visit Provider Surgery
DX: C53.9 Malignant neoplasm of cervix uteri, unspecified; D64.9 Anemia, unspecified; R15.9 Full incontinence of feces; R19.7 Diarrhea, unspecified; J44.9 Chronic obstructive pulmonary disease, unspecified
CPT/HCPCS: 82728; 83540; 83550; 85025